=== PATIENT | female | born 2000 | race Caucasian/White ===

== ENCOUNTER 2021-12-27 12:37 | Emergency (ER) | payer OTHER ==
--- NOTE | 2021-12-27 13:54 | ED Physician Documentation ---
History of Present Illness - Stated complaint Stated Complaint: CHEST TIGHT/DIZZY - Chief complaint Chief Complaint: Cardiac - History obtained from History obtained from: Patient - History of Present Illness Timing: Today Pain level max: 5 Pain level now: 0 - Additonal information Additional information: Patient is a 21-year-old female who presents to the emergency department with intermittent chest tightness for the past several weeks, worsening over the past few days. Occurred again today when she was at work, she is active [employer] and they sent her here for evaluation. She states that it feels like someone is pressing on her chest. Lasts for several hours at a time. There seem to be worsening episodes for a few minutes at a time. No cardiac history. No medications. No recent travel. No control. She states that she used to vape but when she started developing the chest tightness, she stopped using a vape pen. Does not smoke. No other drug use. No change with palpation or movement. No recent illness. No leg swelling. Review of Systems Ten Systems: 10 systems reviewed and negative Constitutional: denies: Fever, Chills Ears: denies: Ear pain Nose: denies: Rhinorrhea / runny nose, Congestion GI: denies: Vomiting, Diarrhea Skin: denies: Rash Musculoskeletal: denies: Neck pain, Back pain Neurologic: denies: Focal weakness, Numbness, Headache PD PAST MEDICAL HISTORY - Past Medical History Past Medical History: No Cardiovascular: None Respiratory: None Neuro: None Endocrine/Autoimmune: None GI: None ROLL HAND: None : None HEENT: None Psych: Anxiety Musculoskeletal: None Derm: None - Past Surgical History Past Surgical History: No - Present Medications Home Medications: Ambulatory Orders Medication Instructions Recorded Confirmed No Known Home Medications 12/27/21 12/27/21 - Allergies Allergies/Adverse Reactions: Allergies Allergy/AdvReac Type Severity Reaction Status Date / Time No Known Drug Allergies Allergy Verified 12/27/21 12:43 - Social History Does the pt smoke?: No Smoking Status: Never smoker Does the pt drink ETOH?: No Does the pt have substance abuse?: No - Immunizations Immunizations are current?: Yes PD ED PE NORMAL - Vitals Vital signs reviewed: Yes - General General: Alert and oriented X 3, No acute distress - HEENT HEENT: Moist mucous membranes - Neck Neck: Supple, no meningeal sign, No JVD, No bruit - Cardiac Cardiac: RRR, No murmur, No gallop, No rub, Strong equal pulses - Respiratory Respiratory: No respiratory distress, Clear bilaterally - Abdomen Abdomen: Soft, Non tender, Non distended - Back Back: No CVA TTP - Derm Derm: Warm and dry - Extremities Extremities: No edema, No calf tenderness / cord - Neuro Neuro: Alert and oriented X 3, car salter 2-12 intact, No motor deficit, No sensory deficit, Normal speech Results - Vitals Vitals: Vital Signs - 24 hr 12/27/21 12/27/21 12:43 14:48 Temperature 36.7 C Heart Rate 96 73 Respiratory 16 21 Rate Blood Pressure 117/66 93/59 L O2 Saturation 99 100 Oxygen O2 Source Room air - EKG (time done) 1251 Rate: Rate (enter#) (85) Rhythm: NSR [place]: Normal Intervals: Normal ID QRS: Normal Ischemia: Normal ST segments - Labs Labs: Laboratory Tests 12/27/21 12/27/21 12/27/21 14:13 14:13 14:13 WBC 4.6 L RBC 4.32 Hgb 12.7 Hct 36.5 L MCV 84.5 MCH 29.4 MCHC 34.8 RDW 12.0 Plt Count 274 MPV 8.0 Neut # (Auto) 2.4 Lymph # (Auto) 1.6 [place] # (Auto) 0.5 Eos # (Auto) 0.1 Baso # (Auto) 0.0 Absolute Nucleated RBC 0.00 Nucleated RBC % 0.0 D-Dimer 206.2 Sodium 137 Potassium 4.1 Chloride 104 Carbon Dioxide 25 Anion Gap 8.0 BUN 15 Creatinine 0.8 Estimated GFR (MDRD) 91 Glucose 105 H Calcium 9.0 Total Bilirubin 0.2 AST 17 ALT 14 Alkaline Phosphatase 49 Troponin I High Sens Total Protein 7.5 Albumin 4.4 Globulin 3.1 Albumin/Globulin Ratio 1.4 Lipase 41 Urine Color Urine Clarity Urine pH Ur Specific [place] Urine Protein Urine Glucose (UA) Urine Ketones Urine Occult Blood Urine Nitrite Urine Bilirubin Urine Urobilinogen Ur Leukocyte Esterase Ur Microscopic Review Urine Culture Comments Urine HCG, Qual 12/27/21 12/27/21 14:13 14:26 WBC RBC Hgb Hct MCV MCH MCHC RDW Plt Count MPV Neut # (Auto) Lymph # (Auto) [place] # (Auto) Eos # (Auto) Baso # (Auto) Absolute Nucleated RBC Nucleated RBC % D-Dimer Sodium Potassium Chloride Carbon Dioxide Anion Gap BUN Creatinine Estimated GFR (MDRD) Glucose Calcium Total Bilirubin AST ALT Alkaline Phosphatase Troponin I High Sens 3.6 Total Protein Albumin Globulin Albumin/Globulin Ratio Lipase Urine Color YELLOW Urine Clarity CLEAR Urine pH 7.0 Ur Specific [place] 1.020 Urine Protein NEGATIVE Urine Glucose (UA) NEGATIVE Urine Ketones NEGATIVE Urine Occult Blood NEGATIVE Urine Nitrite NEGATIVE Urine Bilirubin NEGATIVE Urine Urobilinogen 0.2 (NORMAL) Ur Leukocyte Esterase NEGATIVE Ur Microscopic Review NOT INDICATED Urine Culture Comments NOT INDICATED Urine HCG, Qual NEGATIVE - Rads (name of study) cxr Radiology: Final report received, EMP read contemporaneously, See rad report (No acute abnormality) PD MEDICAL DECISION MAKING - ED course Complexity details: reviewed results, re-evaluated patient, considered differential (No ST elevation MS, no aortic dissection, no PE, no tension pneumothorax, no aortic aneurysm), d/w patient ED course: Unclear etiology the patient's symptoms. No acute findings on EKG, chest x-ray, blood testing. No evidence of PE or aortic dissection. No evidence of pericarditis or myocarditis. Asymptomatic here. Lungs are clear to auscultation bilaterally. We will have her follow-up with her primary care provider for further care. Patient counseled regarding signs and symptoms for which I believe and urgent re-evaluation would be necessary. Patient with good understanding of and agreement to plan and is comfortable going home at this time This document was made in part using voice recognition software. While efforts are made to proofread this document, sound alike and grammatical errors may occur. Departure - Departure Disposition: 01 Home, Self Care Clinical Impression: Chest pain Qualifiers: Chest pain type: unspecified Qualified Code(s): R07.9 - Chest pain, unspecified Condition: Good Instructions: ED Chest Pain Atypical Unkn Cause Follow-Up: LULA CHAPARRO MD [Primary Care Provider] - Within 1 week Comments: The cause of your symptoms is unclear today. Please follow-up with your doctor for further care. Your chest x-ray, EKG and blood work do not show any acute abnormalities. There is no evidence of blood clots in the lungs. No evidence of infection or inflammation. No evidence of heart attack. It is recommended that you have an echocardiogram with your doctor and further work-up with your primary care provider. Return if you worsen. If you develop any chest pain during activity, you should stop the activity immediately and seek immediate medical attention Discharge Date/Time: 12/27/21 15:13
[2021-12-27 14:19] LABS: BASOPHILS % (AUTO) 0.7 %; EOSINOPHILS # (AUTO) 0.1 10^3/uL (0.0-0.7); HCT - HEMATOCRIT 36.5 % (37.0-47.0); HGB - HEMOGLOBIN 12.7 g/dL (12.0-16.0); LYMPHOCYTES # (AUTO) 1.6 10^3/uL (1.5-3.5); LYMPHOCYTES % (AUTO) 34.6 %; MEAN CORPUSCULAR HEMOGLOBIN 29.4 pg (27.0-31.0); MEAN CORPUSCULAR HGB CONC 34.8 g/dL (32.0-36.0); MEAN CORPUSCULAR VOLUME 84.5 fL (81.0-99.0); MONOCYTES # (AUTO) 0.5 10^3/uL (0.0-1.0); MONOCYTES % (AUTO) 10.2 %; NEUTROPHILS # (AUTO) 2.4 10^3/uL (1.5-6.6); NEUTROPHILS % (AUTO) 52.3 %; PLT - PLATELET COUNT 274 10^3/uL (130-450); RED BLOOD COUNT 4.32 10^6/uL (4.20-5.40); WHITE BLOOD COUNT 4.6 x10^3/uL (4.8-10.8)
--- NOTE | 2021-12-27 14:32 | XRAY Report ---
PROCEDURE: Chest 1 View X-Ray INDICATIONS: Chest Pain TECHNIQUE: One view of the chest was acquired. COMPARISON: None. FINDINGS: Surgical changes and devices: None. Lungs and pleura: No pleural effusions or pneumothorax. Lungs are clear. Mediastinum: Mediastinal contours appear normal. Heart size is normal. Bones and chest wall: No suspicious bony lesions. Overlying soft tissues appear unremarkable. IMPRESSION: No acute cardiopulmonary pathology. Reviewed by: Ck Raza MD on 12/27/2021 2:30 PM PST Approved by: Ck Raza MD on 12/27/2021 2:30 PM PST Station ID: [id number]
[2021-12-27 14:35] LABS: BILIRUBIN,URINE NEGATIVE (NEGATIVE); GLUCOSE, URINE (UA) NEGATIVE (NEGATIVE); KETONES,URINE (UA) NEGATIVE (NEGATIVE); LEUKOCYTE ESTERASE, URINE NEGATIVE (NEGATIVE); NITRITE,URINE NEGATIVE (NEGATIVE); OCCULT BLOOD,URINE NEGATIVE (NEGATIVE); PROTEIN,URINE NEGATIVE (NEGATIVE); UROBILINOGEN,URINE 0.2 (NORMAL) E.U./dL (NORMAL)
[2021-12-27 14:36] LABS: CLARITY,URINE CLEAR (CLEAR)
[2021-12-27 14:37] LABS: HCG UR QUAL NEGATIVE
[2021-12-27 14:44] LABS: ALBUMIN 4.4 g/dL (3.2-5.5); ALBUMIN/GLOBULIN RATIO 1.4 (1.0-2.2); BILIRUBIN,TOTAL 0.2 mg/dL (0.2-1.0); CREATININE 0.8 mg/dL (0.4-1.0); POTASSIUM 4.1 mmol/L (3.5-5.0); TOTAL PROTEIN 7.5 g/dL (6.7-8.2)
[2021-12-27 14:58] VITALS: BP 93/59
== END 2021-12-27 15:13 | disposition home or self-care (01) ==
LOC: ED 12:37
DX: R07.89 Other chest pain (principal)
CPT/HCPCS: 36415; 80053; 81001; 81003; 81025; 83690; 84484; 85025; 85379; 87086; 93005; 99283; 99284